=== PATIENT | female | born 1980 | race Caucasian/White ===

== ENCOUNTER → 2018-12-15 | Outpatient (CLI) | payer SELFPAY ==
[2005-03-25 07:00] VITALS: TEMP 98.9
== END ==
LOC: COL.RAD 09:45
DX: M54.5 Low back pain (principal); M96.1 Postlaminectomy syndrome, not elsewhere classified; Z98.1 Arthrodesis status
CPT/HCPCS: A9585

== ENCOUNTER 2019-01-12 09:07 | Emergency (ER) | payer MEDICAID ==
[~2019-01-12] VITALS: Ht 157.5 cm; Wt 54.5 kg
[2019-01-12 09:25] VITALS: BP 134/73; TEMP 99.5
[2019-01-12 10:45] VITALS: PULSE 81
== END 2019-01-12 10:46 | disposition home or self-care (01) ==
LOC: COL.ER 09:07
DX: S40.021A Contusion of right upper arm, initial encounter (principal); G89.29 Other chronic pain; M54.5 Low back pain; F17.210 Nicotine dependence, cigarettes, uncomplicated; Y92.009 Unspecified place in unspecified non-institutional (private) residence as the place of occurrence of the external cause; W23.0XXA Caught, crushed, jammed, or pinched between moving objects, initial encounter

== ENCOUNTER 2019-01-23 14:04 | Day surgery (SDC) | payer MEDICAID ==
[~2019-01-23] VITALS: Ht 5.1 cm; Wt 57.0 kg
[2019-01-23 14:54] VITALS: BP 103/63; PULSE 80; TEMP 98.5
[2019-01-23] MEDS ORDERED: FLEXERIL5 MG PO (15:09)
[2019-01-23] MEDS ORDERED: NORCO 325 MG-51 TAB PO (15:11)
[2019-01-23] MEDS ORDERED: MOBIC 7.5MG7.5 MG PO (15:12)
[2019-01-23 16:39] VITALS: BP 106/57; PULSE 86; TEMP 97.3
--- NOTE | 2019-01-23 16:39 | NUR ---
Pt arrives back from OR via cart. Pt alert and oriented, conversing, and answering all questions appropriately. Monitors on and alarms set. Call light in place. Report received from GLEN Arellano, and FORTINO Ugarte. Pt reports no pain or nausea. Dressing clean, dry, and intact. Pt requests crackers and water.
[2019-01-23 16:45] VITALS: BP 131/62; PULSE 68
[2019-01-23 17:00] VITALS: BP 125/58; PULSE 78
--- NOTE | 2019-01-23 17:00 | NUR ---
Pt taking food and drink well. No complications stated.
[2019-01-23 17:15] VITALS: BP 130/68; PULSE 84
--- NOTE | 2019-01-23 17:15 | NUR ---
Pt desires to use restroom and ambulates there with RN assist.
--- NOTE | 2019-01-23 17:25 | NUR ---
Pt returns from restroom having voided. No blood in urine, but a small stated "splotch" in dabbed toilet paper.
[2019-01-23 17:30] VITALS: BP 130/68; PULSE 70
--- NOTE | 2019-01-23 17:40 | NUR ---
Discharge instructions given to patient and family. Handed to them are a thank you card, discharge instructions, prescription information, and a discharge med sheet. All questions answered to their satisfaction.
--- NOTE | 2019-01-23 17:50 | NUR ---
Pt transferred out of hospital via wheelchair and this RN to private vehicle driven by daughter.
== END 2019-01-23 17:50 | disposition home or self-care (01) ==
LOC: SDCO 14:04
DX: N36.8 Other specified disorders of urethra (principal); F17.210 Nicotine dependence, cigarettes, uncomplicated; Z91.013 Allergy to seafood; G89.29 Other chronic pain; M54.5 Low back pain
CPT/HCPCS: J0690; J2704; J3010; J7120

== ENCOUNTER 2019-02-26 14:15 | Outpatient (RCR) | payer MEDICAID ==
[2005-03-25 07:00] VITALS: PULSE 80; TEMP 98.9
[~2019-02-26 14:15] MED LIST: FLEXERIL5 MG PO; MOBIC 7.5MG7.5 MG PO; NORCO 325 MG-51 TAB PO
== END 2019-04-14 | disposition home or self-care (01) ==
LOC: WSOT
DX: G56.31 Lesion of radial nerve, right upper limb (principal)